=== PATIENT | male | born 1960 | race Caucasian/White ===

== ENCOUNTER 2016-04-08 15:50 | Emergency (ER) | payer OTHER ==
[2016-04-08 15:57] VITALS: BP 155/90; PULSE 68; RESP 20; TEMP 98.1
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
[2016-04-08] MEDS ORDERED: KETOROLAC 60 MG/2 ML VIAL IM STA (16:49)
== END 2016-04-08 17:10 | disposition home or self-care (01) ==
LOC: EC 15:50
DX: G89.29 Other chronic pain (principal); M54.2 Cervicalgia; R51 Headache; Z85.118 Personal history of other malignant neoplasm of bronchus and lung; Z88.1 Allergy status to other antibiotic agents
CPT/HCPCS: 99283; 96372; J1885

== ENCOUNTER → 2016-05-13 | Outpatient (CLI) | payer OTHER ==
--- NOTE | 2016-05-13 15:48 | US ---
EXAMINATION TYPE: US kidneys/renal and bladder DATE OF EXAM: 05/13/2016 3:34 PM COMPARISON: CT 06/07/2012 CLINICAL HISTORY: Renal Cyst N28.1. Known bilateral renal cysts EXAM MEASUREMENTS: Right Kidney: 11.0 x 4.7 x 5.2 cm Left Kidney: 10.5 x 5.8 x 3.8 cm Right Kidney: No evidence of hydro/ Cyst mid, medial= 1.3 x 1.2 x 1.3 cm Left Kidney: No evidence of hydro/ Cyst lower pole= 3.8 x 3.3 x 3.5 cm . This cyst appears slightly larger than 2013 CT comparison. Bladder: wnl Bilateral Jets seen: No There is no evidence for hydronephrosis at this point in time. No nephrolithiasis is seen. No angela s are identified. The urinary bladder is anechoic. Bilateral ureteral jets are seen. IMPRESSION: Bilateral renal cysts.
== END | disposition home or self-care (01) ==
LOC: RADUSWWP 15:14
PROVIDERS: ATTEND Urology
DX: N28.1 Cyst of kidney, acquired (principal)
CPT/HCPCS: 76770

== ENCOUNTER → 2016-06-09 | Outpatient (CLI) | payer OTHER ==
--- NOTE | 2016-06-09 15:43 | US ---
EXAMINATION TYPE: US kidneys/renal and bladder DATE OF EXAM: 06/09/2016 3:28 PM COMPARISON: 05/13/2016 CLINICAL HISTORY: N28.1 Renal Cyst. Patient wanted to reassess kidneys EXAM MEASUREMENTS: Right Kidney: 10.7 x 4.9 x 5.4 cm Left Kidney: 12.3 x 4.9 x 5.9 cm Right Kidney: medial cyst seen = 1.2cm Left Kidney: 3.8cm cyst seen mid pole Bladder: wnl Bilateral Jets seen: no There is no evidence for hydronephrosis at this point in time. No nephrolithiasis is seen. Simple Cy st left kidney. Stable slightly complex cyst right kidney. The urinary bladder is anechoic. Bilatera l ureteral jets are seen. IMPRESSION: 1.Stable slightly complex cyst right kidney. Continued follow-up recommended.
== END | disposition home or self-care (01) ==
LOC: RADUSWWP 15:02
PROVIDERS: ATTEND Urology
DX: N28.1 Cyst of kidney, acquired (principal)
CPT/HCPCS: 76770

== ENCOUNTER 2016-07-20 16:19 | Emergency (ER) | payer OTHER ==
[2016-07-20 16:42] VITALS: BP 135/84; PULSE 71; RESP 18; TEMP 97.8
[2016-07-20] MEDS ORDERED: DIPH,PERTUS(ACELL)TETVAC-LF 0.5 ML VIAL IM ONE (16:59)
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
--- NOTE | 2016-07-20 17:11 | XR ---
EXAMINATION TYPE: XR finger RT DATE OF EXAM: 07/20/2016 COMPARISON: NONE HISTORY: Pain and injury TECHNIQUE: 3 views FINDINGS: I see no fracture nor dislocation. Joint spaces are fairly normal. There is mild spurring a t the IP and MP joints. IMPRESSION: No acute abnormality of the right index finger.
[2016-07-20] MEDS ORDERED: AMOXIC-POT CLAV 875MG STARTER 2 EACH TABLET PO STA (17:46)
== END 2016-07-20 18:06 | disposition home or self-care (01) ==
LOC: EC 16:19
DX: S60.450A Superficial foreign body of right index finger, initial encounter (principal); Z23 Encounter for immunization; Z88.1 Allergy status to other antibiotic agents; W20.8XXA Other cause of strike by thrown, projected or falling object, initial encounter
CPT/HCPCS: 90471; 90715; 99283

== ENCOUNTER → 2016-11-21 | Outpatient (CLI) | payer OTHER ==
--- NOTE | 2016-11-21 12:15 | US ---
EXAMINATION TYPE: US kidneys/renal and bladder DATE OF EXAM: 11/21/2016 COMPARISON: 06/09/2016 CLINICAL HISTORY: R RENAL CYST N28.1. Renal cysts EXAM MEASUREMENTS: Right Kidney: 10.9 x 4.8 x 5.1 cm Left Kidney: 11.3 x 6.0 x 4.5 cm Right Kidney: cystic area medial as noted on prior exam, unchanged in size = 1.2 x 1.2 x 1.3cm, fulln ess to the renal pelvis Left Kidney: cystic area mid as noted on prior, unchanged in size = 3.5 x 3.8 x 3.5cm Bladder: not fully distended Bilateral Jets seen: no There is no evidence for hydronephrosis at this point in time. No nephrolithiasis is seen. The urina ry bladder is anechoic. Incidental note is made of impression upon the posterior urinary bladder by t he multinodular prostate gland. IMPRESSION: 1. Unchanged size of the bilateral minimally complex renal cysts. 2. Impression upon the posterior urinary bladder from the multinodular prostate gland.
== END ==
LOC: RADUSWWP 09:48
PROVIDERS: ATTEND Urology
DX: N28.1 Cyst of kidney, acquired (principal)
CPT/HCPCS: 76770

== ENCOUNTER 2017-01-04 16:22 | Emergency (ER) | payer OTHER ==
[2017-01-04 16:29] VITALS: BP 125/80; PULSE 78; RESP 18; TEMP 97.4
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
== END 2017-01-04 17:16 | disposition home or self-care (01) ==
LOC: EC 16:22
DX: M54.9 Dorsalgia, unspecified (principal); G89.29 Other chronic pain; Z85.118 Personal history of other malignant neoplasm of bronchus and lung; Z88.1 Allergy status to other antibiotic agents; Z79.891 Long term (current) use of opiate analgesic
CPT/HCPCS: 99282

== ENCOUNTER 2017-07-21 21:06 | Emergency (ER) | payer OTHER ==
[2017-07-21 21:22] VITALS: RESP 18
[2017-07-21] MEDS ORDERED: MORPHINE SULFATE 2 MG/ML SYRINGE IV STA (21:32)
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
[2017-07-21] MEDS ORDERED: ONDANSETRON 4 MG/2 ML VIAL IVP STA (21:43)
[2017-07-21 21:50] LABS: Basophils # (A) 0.1 k/uL (0-0.2); Basophils % (A) 1 %; Eosinophils # (A) 0.8 k/uL (0-0.7); Eosinophils % (A) 8 %; HCT 45.7 % (39.0-53.0); HGB 15.6 gm/dL (13.0-17.5); Lymphocytes # (A) 3.2 k/uL (1.0-4.8); Lymphocytes % (A) 30 %; MCH 32.3 pg (25.0-35.0); MCHC 34.2 g/dL (31.0-37.0); MCV 94.3 fL (80.0-100.0); Mean Platelet Volume 6.5; Monocytes # (A) 0.6 k/uL (0-1.0); Monocytes % (A) 5 %; Neutrophils # (A) 5.9 k/uL (1.3-7.7); Neutrophils % (A) 54 %; Platelet Count 336 k/uL (150-450); RBC 4.84 m/uL (4.30-5.90); RDW 13.2 % (11.5-15.5); WBC 10.9 k/uL (3.8-10.6)
[2017-07-21 22:08] LABS: ALT 31 U/L (21-72); AST 36 U/L (17-59); Albumin 4.6 g/dL (3.5-5.0); Alkaline Phosphatase 87 U/L (38-126); Amylase 115 U/L (30-110); Anion Gap 14 mmol/L; Blood Urea Nitrogen 15 mg/dL (9-20); Calcium 9.5 mg/dL (8.4-10.2); Carbon Dioxide 26 mmol/L (22-30); Chloride 101 mmol/L (98-107); Glucose 111 mg/dL (74-99); Lipase 49 U/L (23-300); Potassium 4.3 mmol/L (3.5-5.1); Sodium 141 mmol/L (137-145); Total Bilirubin 1.1 mg/dL (0.2-1.3); Total Protein 7.4 g/dL (6.3-8.2)
--- NOTE | 2017-07-21 22:59 | CT ---
EXAMINATION TYPE: CT abdomen pelvis w con DATE OF EXAM: 07/21/2017 COMPARISON: 06/07/2012 HISTORY: Abdominal pain and vomiting CT DLP: 475 mGycm Automated exposure control for dose reduction was used. TECHNIQUE: Helical acquisition of images was performed from the lung bases through the pelvis. CONTRAST: Performed without Oral Contrast and with IV Contrast, patient injected with 100 mL of Isovue 300. FINDINGS: Lung bases are clear. There is no pleural effusion. There is no pericardial effusion. Heart size is n ormal. Liver shows no focal defect. Bile ducts are not dilated. Spleen appears normal. There is no evidence of pancreatic mass. Gallbladder is somewhat contracted. I see no intestinal wall thickening. There are no dilated loops. There are multiple fluid-filled loop s of small bowel in the pelvis. These measure up to 2.8 cm. There is no ascites. There is a 1.[address] on the anterior right kidney. There is 4 cm cortical cyst lateral left kidney. There is no hydrone phrosis. There is no adrenal mass. There is no retroperitoneal adenopathy. I see no bony destructive process. There is second-degree L5-S1 spondylolisthesis with bilateral L5 spondylolysis. Appendix is not seen. There is no sign of appendicitis. There is no evidence of free air. IMPRESSION: RENAL CORTICAL CYSTS APPEAR STABLE. THERE IS EVIDENCE OF SMALL BOWEL ILEUS THAT IS NEW COMPARED TO OL D EXAM.
[2017-07-21 23:06] LABS: Amorphous Sediment,Urine Occasional /hpf; Appearance,Urine Turbid (Clear); Bilirubin,Urine Negative (Negative); Blood,Urine Negative (Negative); Color,Urine Yellow; Glucose,Urine (UA) Negative (Negative); Ketones,Urine Trace (Negative); Leukocyte Esterase,Urine Negative (Negative); Nitrite,Urine Negative (Negative); Protein,Urine Trace (Negative); RBC,Urine 5 /hpf (0-5); Specific Gravity,Urine 1.017 (1.001-1.035); Urobilinogen,Urine <2.0 mg/dL (<2.0)
[2017-07-22 02:01] VITALS: BP 143/69; PULSE 55; TEMP 98.6
== END 2017-07-22 02:18 | disposition home or self-care (01) ==
LOC: EC 21:06
DX: R10.9 Unspecified abdominal pain (principal); M54.5 Low back pain; G89.29 Other chronic pain; K59.09 Other constipation; D68.9 Coagulation defect, unspecified; I25.2 Old myocardial infarction; Z85.118 Personal history of other malignant neoplasm of bronchus and lung; Z79.891 Long term (current) use of opiate analgesic; Z88.1 Allergy status to other antibiotic agents; W10.9XXA Fall (on) (from) unspecified stairs and steps, initial encounter
CPT/HCPCS: 36415; 80053; 82150; 83690; 85025; 81001; 74177; 99284; 96374; 96375; J2405; J2270; Q9967

== ENCOUNTER 2019-04-11 07:36 | Emergency (ER) | payer OTHER ==
[2019-04-11 07:42] VITALS: TEMP 98.2
[2019-04-11] MEDS ORDERED: HYDROmorphone 0.5 MG/0.5 ML SYRINGE IM STA (08:04)
--- NOTE | 2019-04-11 08:46 | XR ---
EXAMINATION TYPE: XR lumbar spine 2 or 3V DATE OF EXAM: 04/11/2019 CLINICAL HISTORY: Lower back pain after fall 4 days ago TECHNIQUE: Frontal and lateral images of the lumbar spine are obtained. COMPARISON: 02/02/2013 FINDINGS: Mild levoscoliosis. There are 5 lumbar type vertebral bodies identified. The lumbar spine shows no evidence of acute fracture or dislocation. Vertebral body heights are maintained. Multileve l facet arthropathy and small anterior osteophytes are very minimally progressed from 2013. Grade 1 a nterolisthesis of L5-S1 measures 8mm, stable from the prior. The overlying soft tissue appears unrem arkable. IMPRESSION: 1. No acute fracture of the lumbar spine. 2. Stable grade 1 anterolisthesis of L5 on S1 and minimally progressed overall mild degenerative disc disease of the lumbar spine in comparison to 2013.
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
[2019-04-11 09:16] VITALS: BP 113/87; PULSE 66; RESP 20
== END 2019-04-11 09:19 | disposition home or self-care (01) ==
LOC: EC 07:36
DX: M43.17 Spondylolisthesis, lumbosacral region (principal); M51.36 Other intervertebral disc degeneration, lumbar region; S39.92XA Unspecified injury of lower back, initial encounter; D86.9 Sarcoidosis, unspecified; G89.29 Other chronic pain; M54.2 Cervicalgia; I25.2 Old myocardial infarction; I25.10 Atherosclerotic heart disease of native coronary artery without angina pectoris; Z88.1 Allergy status to other antibiotic agents; Z85.118 Personal history of other malignant neoplasm of bronchus and lung; W00.0XXA Fall on same level due to ice and snow, initial encounter
CPT/HCPCS: 72100; 96372; 99283; J1170

== ENCOUNTER → 2019-04-12 | Outpatient (CLI) | payer OTHER ==
[2019-04-12 12:45] LABS: Basophils % (A) 0 %; Eosinophils % (A) 0 %; HCT 43.5 % (39.0-53.0); HGB 14.7 gm/dL (13.0-17.5); Lymphocytes # (A) 1.8 k/uL (1.0-4.8); Lymphocytes % (A) 30 %; MCH 31.7 pg (25.0-35.0); MCHC 33.8 g/dL (31.0-37.0); MCV 93.8 fL (80.0-100.0); Mean Platelet Volume 7.2; Monocytes # (A) 0.4 k/uL (0-1.0); Monocytes % (A) 6 %; Neutrophils # (A) 3.6 k/uL (1.3-7.7); Neutrophils % (A) 61 %; Platelet Count 228 k/uL (150-450); RBC 4.63 m/uL (4.30-5.90); RDW 12.8 % (11.5-15.5); WBC 5.9 k/uL (3.8-10.6)
[2019-04-12 13:35] LABS: Erythrocyte Sedimentation Rate 13 mm/hr (0-15)
--- NOTE | 2019-04-12 13:39 | XR ---
EXAMINATION TYPE: XR abdomen 2V DATE OF EXAM: 04/12/2019 COMPARISON: 06/07/2012, CT abdomen pelvis 07/21/2017 INDICATION: Tumors and kidneys TECHNIQUE: Single view abdomen upright view FINDINGS: There is a normal bowel gas pattern. Psoas margins are normal. No organomegaly is present. Renal contours as visualized appear normal. Left renal contour is poorly visualized. IMPRESSION: 1. No suspicious abnormality. Consider CT abdomen pelvis for additional evaluation kidneys
[2019-04-12 18:22] LABS: African American GFR (CKD) 95.7 (60.0-200.0); Albumin 4.4 g/dL (3.80-4.90); Albumin/Globulin Ratio 1.91 (1.60-3.17); Anion Gap 9.4 mmol/L (4.00-12.00); Bilirubin, Conjugated 0.3 mg/dL (0.20-0.40); Bilirubin,Unconjugated 0.4 mg/dL; Calcium 8.8 mg/dL (8.7-10.3); Carbon Dioxide 27.6 mmol/L (21.6-31.8); Globulin 2.3 g/dL (1.6-3.3); Non-African American GFR(CKD) 82.6 (60.0-200.0); Potassium 4.3 mmol/L (3.5-5.5); Total Bilirubin 0.7 mg/dL (0.3-1.2); Total Protein 6.7 g/dL (6.2-8.2)
[2019-04-13 15:51] LABS: C Reactive Protein 2.7
== END | disposition home or self-care (01) ==
LOC: LABWHC1 11:58
PROVIDERS: ATTEND Family Medicine
DX: R10.9 Unspecified abdominal pain (principal); R11.2 Nausea with vomiting, unspecified; R53.83 Other fatigue
CPT/HCPCS: 74019; 80053; 82150; 82248; 83690; 85025; 85652; 86140; 87502

== ENCOUNTER 2019-11-17 14:08 | Emergency (ER) | payer OTHER ==
[2019-11-17 14:38] VITALS: TEMP 98.3
[2019-11-17] MEDS ORDERED: SODIUM CHLORIDE 0.9% 500 ML 500 ML IV STA (15:11)
[2019-11-17] MEDS ORDERED: MORPHINE SULFATE 4 MG/ML SYRINGE IV STA (15:12)
[2019-11-17 15:37] LABS: ALT 16 U/L (4-49); AST 44 U/L (17-59); African American GFR (CKD) >90 (>60 ml/min/1.73 sqM); Albumin 4.9 g/dL (3.5-5.0); Alkaline Phosphatase 116 U/L (38-126); Anion Gap 12 mmol/L; Blood Urea Nitrogen 25 mg/dL (9-20); Calcium 9.7 mg/dL (8.4-10.2); Carbon Dioxide 26 mmol/L (22-30); Chloride 99 mmol/L (98-107); Glucose 92 mg/dL (74-99); Magnesium 2.1 mg/dL (1.6-2.3); Non-African American GFR(CKD) >90 (>60 ml/min/1.73 sqM); Potassium 4.7 mmol/L (3.5-5.1); Sodium 137 mmol/L (137-145); Total Protein 8.6 g/dL (6.3-8.2)
[2019-11-17 15:38] LABS: Basophils # (A) 0.1 k/uL (0-0.2); Basophils % (A) 1 %; Eosinophils # (A) 0.1 k/uL (0-0.7); Eosinophils % (A) 1 %; HCT 48.5 % (39.0-53.0); HGB 16.2 gm/dL (13.0-17.5); Lymphocytes # (A) 3.8 k/uL (1.0-4.8); Lymphocytes % (A) 56 %; MCH 31.1 pg (25.0-35.0); MCHC 33.3 g/dL (31.0-37.0); MCV 93.2 fL (80.0-100.0); Mean Platelet Volume 6.9; Monocytes # (A) 0.6 k/uL (0-1.0); Monocytes % (A) 9 %; Neutrophils # (A) 2.1 k/uL (1.3-7.7); Neutrophils % (A) 31 %; Platelet Count 300 k/uL (150-450); RBC 5.21 m/uL (4.30-5.90); RDW 13.2 % (11.5-15.5); WBC 6.8 k/uL (3.8-10.6)
--- NOTE | 2019-11-17 15:49 | XR ---
EXAMINATION TYPE: XR ribs RT w pa chest xray DATE OF EXAM: 11/17/2019 CLINICAL HISTORY: Chest and right-sided rib pain. TECHNIQUE: Single frontal view of the chest is obtained. A frontal and oblique images right-sided rib s. COMPARISON: CT chest June 20, 2015. Prior chest x-ray November 19, 2014. FINDINGS: There is chronic parenchymal change without suspicious new focal air space opacity, pleura l effusion, or pneumothorax seen. The cardiac silhouette size remains within normal limits. Surgic al clips overlying the lower trachea redemonstrated. The osseous structures are intact. Dedicated images right-sided ribs show old fracture and/or deformity right posterior sixth rib. No ac diomede displaced right-sided rib fracture. Finding was present on 2016 CT. IMPRESSION: 1. Chronic changes without acute pulmonary process. 2. Chronic deformity right posterior sixth rib. No acute displaced right-sided rib fracture.
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
[2019-11-17 17:23] VITALS: BP 138/97; PULSE 68; RESP 16
== END 2019-11-17 17:27 | disposition home or self-care (01) ==
LOC: EC 14:08
DX: R07.81 Pleurodynia (principal); M62.838 Other muscle spasm; G89.29 Other chronic pain; M54.2 Cervicalgia; M54.9 Dorsalgia, unspecified; M81.0 Age-related osteoporosis without current pathological fracture; I25.2 Old myocardial infarction; Z79.891 Long term (current) use of opiate analgesic; Z88.1 Allergy status to other antibiotic agents; Z85.118 Personal history of other malignant neoplasm of bronchus and lung; Z90.2 Acquired absence of lung [part of]
CPT/HCPCS: 36415; 93005; 85379; 80053; 83735; 84484; 85025; 71101; 99284; 96374; J2270

== ENCOUNTER → 2020-03-05 | Outpatient (CLI) | payer OTHER ==
--- NOTE | 2020-03-05 09:08 | CT ---
EXAMINATION TYPE: CT sinus wo con DATE OF EXAM: 03/05/2020 COMPARISON: None HISTORY: Headaches CT DLP: 660.[address] of the paranasal sinuses was performed in the axial and coronal planes. Bone and soft tissue settings are submitted. There is complete opacification of the left maxillary sinus extending into the ethmoid air cells and left frontal sinus. Mild expansion noted. Underlying polyposis difficult to exclude. Obstruction left ostiomeatal unit. Mild mucosal thickening of the right maxillary sinus with moderate mucosal thicken ing of the right-sided ethmoid air cells. Sphenoid sinus and right frontal sinus are well-aerated. The nasal septum is midline. No bony destructive changes are seen within the field of view. IMPRESSION: Sinusitis as discussed. Underlying polyposis difficult to exclude.
== END | disposition home or self-care (01) ==
LOC: RADCTMAIN 08:23
PROVIDERS: ATTEND Family Medicine
DX: J32.9 Chronic sinusitis, unspecified (principal)
CPT/HCPCS: 70486

== ENCOUNTER → 2020-07-17 | Outpatient (CLI) | payer OTHER ==
--- NOTE | 2020-07-18 07:07 | MR ---
EXAMINATION TYPE: MR brain wo/w con DATE OF EXAM: 07/17/2020 COMPARISON: Sinus CT March 05, 2020. CT brain June 15, 2015. HISTORY: Neurosarcoidosis, Dizziness TECHNIQUE: Multiplanar, multisequence images of the brain and brainstem is performed without and with IV contras t, utilizing 5 mL intravenous Gadavist . FINDINGS: Diffusion weighted images demonstrate no evidence of a recent infarct or other diffusion ab normality. There is no extra-axial fluid collection or significant white matter signal abnormality. The ventricular system and cisternal spaces are normal in size and appearance. The brain volume is age appropriate. Midline structures demonstrate normal morphology. The craniocervical junction appears within normal limits. Post contrast images demonstrate no abnormal enhancement. The dural venous sinuses appear pa tent. The visualized sinuses are clear and the globes are intact. There are completely fluid filled bilateral frontal sinuses with mild to moderate peripheral enhancem ent. Complete fluid-filled anterior ethmoid sinuses with moderate peripheral enhancement. Near comple te fluid filling of bilateral maxillary sinuses with mild peripheral rim enhancement. Findings more p rominent from older studies. IMPRESSION: Acute on chronic paranasal sinus disease as detailed above more prominent from older stud ies. No suspicious intraparenchymal enhancement or findings.
== END | disposition home or self-care (01) ==
LOC: RADMRIMAIN 14:32
PROVIDERS: ATTEND Family Medicine
DX: D86.89 Sarcoidosis of other sites (principal); J32.4 Chronic pansinusitis
CPT/HCPCS: 70553; A9585

== ENCOUNTER 2020-07-18 07:25 | Emergency (ER) | payer OTHER ==
[2020-07-18 07:31] VITALS: RESP 18; TEMP 98.8
[2020-07-18] MEDS ORDERED: SODIUM CHLORIDE 0.9% 1,000 ML IV STA (07:51)
[2020-07-18] MEDS ORDERED: SODIUM CHLORIDE 0.9% 500 ML 500 ML IV STA (07:51)
[2020-07-18] MEDS ORDERED: diphenhydrAMINE 50 MG/ML 1 ML VIAL IVP STA (07:54)
[2020-07-18] MEDS ORDERED: KETOROLAC 15 MG/ML 1 ML VIAL IVP STA (07:54)
[2020-07-18] MEDS ORDERED: PROCHLORPERAZINE INJ 10 MG/2 ML VIAL IVP STA (07:55)
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
[2020-07-18] MEDS ORDERED: cefTRIAXone IN SWFI 1,000 MG/10 ML SYRINGE IVP STA (08:04)
[2020-07-18 08:09] LABS: Basophils % (A) 0 %; Eosinophils # (A) 0.1 k/uL (0-0.7); Eosinophils % (A) 1 %; HCT 40.8 % (39.0-53.0); HGB 14.1 gm/dL (13.0-17.5); Lymphocytes # (A) 2.2 k/uL (1.0-4.8); Lymphocytes % (A) 22 %; MCH 31.8 pg (25.0-35.0); MCHC 34.7 g/dL (31.0-37.0); MCV 91.8 fL (80.0-100.0); Mean Platelet Volume 6.5; Monocytes # (A) 0.9 k/uL (0-1.0); Monocytes % (A) 9 %; Neutrophils # (A) 6.6 k/uL (1.3-7.7); Neutrophils % (A) 67 %; Platelet Count 416 k/uL (150-450); RBC 4.44 m/uL (4.30-5.90); RDW 12.6 % (11.5-15.5); WBC 9.9 k/uL (3.8-10.6)
[2020-07-18 08:22] LABS: ALT 14 U/L (4-49); AST 26 U/L (17-59); African American GFR (CKD) >90 (>60 ml/min/1.73 sqM); Albumin 4.4 g/dL (3.5-5.0); Alkaline Phosphatase 104 U/L (38-126); Anion Gap 9 mmol/L; Blood Urea Nitrogen 19 mg/dL (9-20); Calcium 9.5 mg/dL (8.4-10.2); Carbon Dioxide 26 mmol/L (22-30); Chloride 104 mmol/L (98-107); Creatine Kinase 58 U/L (55-170); Glucose 147 mg/dL (74-99); Magnesium 1.9 mg/dL (1.6-2.3); Non-African American GFR(CKD) >90 (>60 ml/min/1.73 sqM); Potassium 4.1 mmol/L (3.5-5.1); Sodium 139 mmol/L (137-145); Total Bilirubin 0.9 mg/dL (0.2-1.3); Total Protein 7.9 g/dL (6.3-8.2)
[2020-07-18] MEDS ORDERED: AMOXIC-POT CLAV 875-125MG 1 EACH TAB PO STA (08:56)
[2020-07-18 09:28] VITALS: BP 117/83; PULSE 68
== END 2020-07-18 09:24 | disposition home or self-care (01) ==
LOC: EC 07:25
DX: J32.9 Chronic sinusitis, unspecified (principal); Z88.1 Allergy status to other antibiotic agents; I25.2 Old myocardial infarction; Z79.891 Long term (current) use of opiate analgesic
CPT/HCPCS: 99284; 96374; 96375; 36415; 80053; 82550; 83735; 85025; 87040; J1200; J0780; J0696; J1885

== ENCOUNTER 2024-01-27 09:08 | Emergency (ER) | payer OTHER ==
[2024-01-27 09:16] VITALS: RESP 18
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
[2024-01-27] MEDS: MORPHINE SULFATE 4 MG/ML SYRINGE IM STA (09:49)
--- NOTE | 2024-01-27 11:17 | US ---
EXAMINATION TYPE: US axilla LT DATE OF EXAM: 01/27/2024 COMPARISON: NONE CLINICAL INDICATION: Male, 63 years old with history of Painful lump; Painful lump in left axilla x 1 month. TECHNIQUE: Scanned left axilla. FINDINGS: *Complex area with vascularity seen at palpable area: 4.3 x 3.9 x 2.4 cm. -Hypoechoic area with vascularity seen posterior to first area: 2.3 x 1.7 x 1.0 cm. Adjacent vessel noted. -2 additional hypoechoic areas with hyperechoic centers seen within the lateral axilla, #1: 0.8 x 0.9 x 0.7 cm. #2: 0.8 x 0.9 x 0.7 cm. IMPRESSION: Nonspecific adenopathy. Malignancy not excluded. Correlate clinically. [facility], , 01/27/2024 11:15 AM
[2024-01-27] MEDS: KETOROLAC 15 MG/ML 1 ML VIAL IM STA (11:41)
[2024-01-27] MEDS: HYDROmorphone 1 MG/ML 1 ML SYRINGE IM STA (11:41)
[2024-01-27 11:44] VITALS: BP 145/87; PULSE 65; TEMP 98.1
[2024-01-27] MEDS: BENZOCAINE 20 % GEL 11.9 GM TUBE MM ONE (12:03)
== END 2024-01-27 12:06 | disposition home or self-care (01) ==
LOC: EC 09:08
DX: R59.9 Enlarged lymph nodes, unspecified (principal); D86.9 Sarcoidosis, unspecified; Z88.1 Allergy status to other antibiotic agents
CPT/HCPCS: 76882; 99283; 96372; J2270; J1171; J1885

== ENCOUNTER 2024-01-30 18:59 | Emergency (ER) | payer OTHER ==
[2024-01-30 19:05] VITALS: RESP 18
[2024-01-30] MEDS ORDERED: RX INFO: IV CONTRAST WAS GIVEN 1 EACH MISC MISCELLANE PRN (19:43)
[2024-01-30] MEDS: HYDROmorphone 1 MG/ML 1 ML SYRINGE IVP STA ×2 (19:51→22:33)
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
[2024-01-30] MEDS: KETOROLAC 15 MG/ML 1 ML VIAL IVP STA (19:57)
[2024-01-30 20:05] LABS: Basophils # (A) 0.1 k/uL (0-0.2); Basophils % (A) 1 %; Eosinophils # (A) 0.4 k/uL (0-0.7); Eosinophils % (A) 4 %; HCT 43.3 % (39.0-53.0); HGB 14.5 gm/dL (13.0-17.5); Lymphocytes # (A) 2.8 k/uL (1.0-4.8); Lymphocytes % (A) 31 %; MCH 31.4 pg (25.0-35.0); MCHC 33.4 g/dL (31.0-37.0); MCV 93.8 fL (80.0-100.0); Mean Platelet Volume 6.6; Monocytes # (A) 0.5 k/uL (0-1.0); Monocytes % (A) 6 %; Neutrophils # (A) 5.1 k/uL (1.3-7.7); Neutrophils % (A) 57 %; Platelet Count 384 k/uL (150-450); RBC 4.62 m/uL (4.30-5.90); RDW 12.5 % (11.5-15.5)
[2024-01-30 20:18] LABS: ALT 14 U/L (4-49); AST 29 U/L (17-59); African American GFR (CKD) >90 (>60 ml/min/1.73 sqM); Albumin 4.2 g/dL (3.5-5.0); Alkaline Phosphatase 110 U/L (38-126); Anion Gap 4 mmol/L; Blood Urea Nitrogen 28 mg/dL (9-20); C Reactive Protein 0.9 mg/dL (<1.0); Calcium 9.1 mg/dL (8.4-10.2); Carbon Dioxide 28 mmol/L (22-30); Chloride 107 mmol/L (98-107); Glucose 90 mg/dL (74-99); Non-African American GFR(CKD) >90 (>60 ml/min/1.73 sqM); Potassium 4.2 mmol/L (3.5-5.1); Sodium 139 mmol/L (137-145); Total Bilirubin 0.6 mg/dL (0.2-1.3); Total Protein 7.3 g/dL (6.3-8.2)
--- NOTE | 2024-01-30 21:07 | CT ---
EXAMINATION TYPE: CT upper extremity LT w con DATE OF EXAM: 01/30/2024 8:57 PM COMPARISON: Recent left axillary ultrasound study dated 01/27/2024. CLINICAL INDICATION: Male, 63 years old with history of Tender, fast growing axillary mass; PHH, mass under left axilla TECHNIQUE: Axial images were obtained of the CT upper extremity LT w con, Additional coronal and sagi ttal reformatted images and soft tissue and bone window were obtained for review. 3-D reconstruction was created on a separate workstation. Contrast used:100 mL of Isovue 300 with IV Contrast, (None if empty) CT DLP: 226.6 mGycm, Automated exposure control for dose reduction was used. FINDINGS: There is no evidence of fracture, subluxation, or dislocation. No drainable fluid collectio n/abscess. Hypodense left axillary lesion measures 2.6 x 2.3 cm (axial series 201 image 251). Adjacen t mildly prominent left axillary lymph node measuring 11 mm in short access. No focal muscular atroph y or edema is identified. No radiopaque foreign body identified. Partially visualized lungs demonstra te no acute pathology or suspicious pulmonary mass. Left upper extremity vascular structures appear patent without evidence of high-grade stenosis or occ lusion. Partially visualized thyroid gland is unremarkable. IMPRESSION: 1. Enlarged low density circumscribed lesion in the left axilla measuring 2.6 x 2.3 cm, possibly ref lecting a necrotic lymph node. Infectious etiology would also be possible. Consider further evaluatio n with tissue sampling/biopsy if clinically warranted. 2. Additional solid-appearing small left axillary lymph nodes measuring up to 11 mm in short access. [facility], , 01/30/2024 9:05 PM
[2024-01-30] MEDS: DOXYCYCLINE 100 MG CAP PO STA (22:33)
[2024-01-30 22:44] VITALS: BP 130/98; PULSE 100; TEMP 98.1
[2024-01-31 10:29] LABS: Erythrocyte Sedimentation Rate 35 mm/Hr (0-20)
== END 2024-01-30 22:52 | disposition home or self-care (01) ==
LOC: EC 18:59
DX: R22.32 Localized swelling, mass and lump, left upper limb (principal); D86.9 Sarcoidosis, unspecified; Z88.1 Allergy status to other antibiotic agents
CPT/HCPCS: 36415; 80053; 85652; 85025; 86140; 73201; 99284; 96374; 96376; J1171; Q9967

== ENCOUNTER 2024-02-01 10:41 | Emergency (ER) | payer OTHER ==
[2024-02-01 11:02] VITALS: TEMP 98.1
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
[2024-02-01] MEDS: HYDROmorphone 1 MG/ML 1 ML SYRINGE IM STA (11:44)
[2024-02-01 11:49] VITALS: BP 137/86; PULSE 62; RESP 20
== END 2024-02-01 11:51 | disposition home or self-care (01) ==
LOC: EC 10:41
DX: L02.412 Cutaneous abscess of left axilla (principal); Z88.1 Allergy status to other antibiotic agents
CPT/HCPCS: 87070; 87205; 99283; 96372; 10060; J1171

== ENCOUNTER 2024-02-05 14:38 | Day surgery (SDC) | payer OTHER ==
[~2024-02-05 14:38] MED LIST: Pre Op ABX Message 1 EACH MISC MISCELLANE ONE
[2024-02-05] MEDS: IV FLUID CONTINUATION 1,000 ML IV ONE (15:09)
[2024-02-05] MEDS: ONDANSETRON 4 MG/2 ML VIAL IVP STA (15:13)
[2024-02-05] MEDS: DEXAMETHASONE SOD PHOSPHATE 4 MG/ML 1 ML VIAL IVP STA (15:15)
[2024-02-05] MEDS: LACTATED RINGERS 1,000 ML BAG IV STA (15:15)
[2024-02-05] MEDS ORDERED: ceFAZolin 1 GM/50 ML BAG (PMX) ONE (16:38)
[2024-02-05] MEDS ORDERED: KETAMINE HCL IN 0.9 % NACL 50 MG/5 ML SYRINGE ONE (16:38)
[2024-02-05] MEDS ORDERED: GLYCOPYRROLATE 0.2 MG/ML 2 ML VIAL ONE (16:38)
[2024-02-05] MEDS ORDERED: LIDOCAINE 1% INJ 10MG/ML (20 ML MDV) ONE (16:38)
[2024-02-05] MEDS ORDERED: MIDAZOLAM 2 MG/2 ML VIAL ONE (16:38)
[2024-02-05] MEDS ORDERED: ePHEDrine 50 MG/ML 1 ML VIAL ONE (16:38)
[2024-02-05] MEDS ORDERED: PROPOFOL 10 MG/ML 20 ML VIAL IV ONE (16:38)
[2024-02-05] MEDS ORDERED: fentaNYL (PF) 50 MCG/ML 2 ML AMP ONE (16:38)
[2024-02-05] MEDS: SODIUM CHLORIDE 0.9% 100 ML with ceFAZolin 2,000 MG IV ONE (16:43)
[2024-02-05 17:51] VITALS: TEMP 96.8
[2024-02-05] MEDS: HYDROmorphone 0.5 MG/0.5 ML SYRINGE IVP PRN (17:57)
[2024-02-05] MEDS: KETOROLAC 15 MG/ML 1 ML VIAL IVP STA (18:42)
[2024-02-05 19:04] VITALS: PULSE 72
[2024-02-05 19:15] VITALS: BP 144/72; RESP 18
--- NOTE | 2024-02-07 11:44 | P.OP ---
Date of Procedure: 02/05/24 Preoperative Diagnosis: Left Axillary Adenopathy Postoperative Diagnosis: Left Axillary Sebaceous Cyst Procedure(s) Performed: Excision Left Axillary Sebaceous Cyst Anesthesia: SARAHY Surgeon: Art Schumacher Pathology: other (Cyst) Condition: stable Disposition: PACU Description of Procedure: The patient was taken to the operating suite and placed in the supine position. Anesthesia was given and endotracheal intubation was performed. The patient was prepped and draped in usual sterile fashion. A timeout was performed. A #15 blade was used to make an elliptical incision around the axillary mass. Bovie electrocautery was used to dissect around the the mass and it became immediately apparent it was a cyst. Bovie electrocautery was used to used to dissect all the way around the cyst and take down all the adhesions around the cyst. Once the cyst was freed it was passed off as a specimen. Bovie electrocautery was used for hemostasis. The incision was then closed in an interrupted manner with #2-0 Nylon Sutures. A sterile dressing was applied. The patient tolerated the procedure well and was sent to the PACU in stable condition.
== END 2024-02-05 19:32 | disposition home or self-care (01) ==
LOC: OR 14:38
PROVIDERS: ATTEND Surgery
DX: L72.3 Sebaceous cyst (principal); I25.2 Old myocardial infarction; I25.10 Atherosclerotic heart disease of native coronary artery without angina pectoris; Z85.118 Personal history of other malignant neoplasm of bronchus and lung; Z79.899 Other long term (current) drug therapy; Z88.1 Allergy status to other antibiotic agents
CPT/HCPCS: 11400; 88304; J2250; J1100; J2405; J0690 ×2; J2003; J3010; J1885; J2704; J1171; J1596

== ENCOUNTER 2024-07-21 08:15 | Day surgery (SDC) | payer OTHER ==
[2024-07-20 09:43] VITALS: BMI 18.8
[2024-07-21] MEDS: IV FLUID CONTINUATION 1,000 ML IV ONE (08:55)
[2024-07-21] MEDS: LACTATED RINGERS 1,000 ML IV SCH (08:55)
[2024-07-21 09:00] VITALS: TEMP 98.1
[2024-07-21] MEDS ORDERED: PROPOFOL 10 MG/ML 20 ML VIAL IV ONE (09:19)
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
--- NOTE | 2024-07-21 09:34 | P.OP ---
Date of Procedure: 07/21/24 Preoperative Diagnosis: Screening colonoscopy Postoperative Diagnosis: Mild diverticulosis Procedure(s) Performed: Colonoscopy Anesthesia: MAC Surgeon: Tommy Kelly Pathology: none sent Condition: stable Disposition: PACU Description of Procedure: The patient was placed on the endoscopy table in the lateral position. He received IV sedation. Digital rectal exam was performed. This revealed no abnormalities. Flexible colonoscope was then placed patient anus passed throughout the entire colon. The ileocecal valve was visualized. The cecum, ascending and transverse colon appeared normal. In the descending sigmoid colon is mild diverticular changes. The scope was then brought back to the rectum this appeared normal. Scope withdrawn for the patient.
[2024-07-21 09:54] VITALS: BP 118/82; PULSE 63; RESP 16
== END 2024-07-21 10:27 | disposition home or self-care (01) ==
LOC: ORWHC2ENDO 08:15
PROVIDERS: ATTEND Surgery
DX: Z12.11 Encounter for screening for malignant neoplasm of colon (principal); K57.30 Diverticulosis of large intestine without perforation or abscess without bleeding; I25.10 Atherosclerotic heart disease of native coronary artery without angina pectoris; I25.2 Old myocardial infarction; D86.9 Sarcoidosis, unspecified; Z88.1 Allergy status to other antibiotic agents
CPT/HCPCS: 45378; J2704